=== PATIENT | female | born 1945 | race Caucasian/White ===

== ENCOUNTER 2019-08-26 09:50 | Day surgery (SDC) | payer MEDICARE, OTHER ==
[2019-08-26] MEDS ORDERED: Depo-Medrol 40 MG/ML IM ONE (09:51)
[2019-08-26] MEDS ORDERED: Sodium Chloride 0.9(Preservative Free) 10 ML IJ ONE (09:51)
[2019-08-26] MEDS ORDERED: DIPRIVAN 200 MG/20 ML IV ONE (11:03)
[2019-08-26] MEDS ORDERED: Ketamine HCl 50 MG/ML ONE (11:03)
--- NOTE | 2019-08-26 13:10 | XRAY ---
Indication: Right L4-S1 ISAAC. Intraoperative fluoroscopy was provided for 30 seconds. For digital spot images submitted for interpretation demonstrates posterior needle tips projecting over the expected right L4 and L5 nerve roots. Small amount of contrast injected for needle tip placement. Correlate with intraoperative findings/report. Incidental posterior L4-L5 spinous process fusion hardware.
--- NOTE | 2019-08-26 13:23 | XRAY ---
30 seconds fluoroscopy time in surgery for right L4-S1 transforaminal ISAAC.
[2019-08-26] MEDS ORDERED: Lactated Ringers 1,000 ML IV ONE (15:40)
== END 2019-08-26 11:30 | disposition home or self-care (01) ==
LOC: SDC-PAIN 09:50
PROVIDERS: ATTEND Psychiatry & Neurology Pain Medicine
DX: M54.16 Radiculopathy, lumbar region (principal); M96.1 Postlaminectomy syndrome, not elsewhere classified; E11.9 Type 2 diabetes mellitus without complications; I10 Essential (primary) hypertension; E03.9 Hypothyroidism, unspecified; E78.5 Hyperlipidemia, unspecified; G62.9 Polyneuropathy, unspecified; Z79.899 Other long term (current) drug therapy
CPT/HCPCS: 64483; 64484; 72100; 77003; 82962; 99100; J1030; J2704; Q9966

== ENCOUNTER 2022-09-17 14:28 | Emergency (ER) | payer MEDICARE, OTHER ==
--- NOTE | 2022-09-17 14:36 | ERPHSYRPT ---
- History of Present Illness Time Seen by Provider: 09/17/22 14:36 Source: patient Exam Limitations: no limitations Physician History: This is a 77-year-old white female patient who was seen at her primary care physician's office, Dr. Puneet Rodriguez and found to have a systolic blood pressure of over 220. 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 Hong, and she recalls that her systolic blood pressure was 135. Because of her high blood pressure, the patient was sent to the emergency room for evaluation. Patient took her benazepril this morning which is the only medication she has for her high blood pressure. There is been no recent changes in her medications. Patient has a history of hyperlipidemia, hypertension and hypothyroidism. Patient denies chest pain. Patient denies shortness of breath. She has had a cough and she has not had a chest x-ray recently. Patient denies dizziness, headache or visual changes. Patient has experienced stressors within the last 1 to 2 weeks and as recent as yesterday and today. However, she states that she does not feel as though she is under increased or significant stress Timing/Duration: today Severity: moderate Associated Symptoms: denies symptoms, No shortness of breath, No chest pain, No weakness Allergies/Adverse Reactions: No Known Drug Allergies Allergy (Unverified 09/17/22 14:51) Home Medications: Levothyroxine Sodium 75 Mcg [Synthroid 75 Mcg] 75 mcg PO UD 02/02/12 [History] Ascorbic Acid 1,000 gm PO DAILY 09/17/22 [History] Benazepril HCl 20 mg PO BID 09/17/22 [History] Diclofenac Sodium 50 mg [Voltaren 50 mg] 50 mg PO DAILY 09/17/22 [History] Fexofenadine HCl 60 mg PO DAILY 09/17/22 [History] Hydrocodone/Acetaminophen [Hydrocodone-Acetamin 5-325 mg] 1 tab PO Q4H PRN MDD 6 09/17/22 [History] Levothyroxine Sodium 88 Mcg [Synthroid 88 Mcg] 88 mcg PO DAILY 09/17/22 [History] Magnesium Oxide [Magnesium] 400 mg PO DAILY 09/17/22 [History] Metformin HCl 500 mg [Glucophage 500 MG] 500 mg PO BID 09/17/22 [History] Metoprolol Succinate 50 mg [Toprol Xl 50 MG] 25 mg PO DAILY 09/17/22 [His tory] Oxcarbazepine 300 mg [Trileptal 300 MG Tablet] 300 mg PO BID 09/17/22 [History] Pravastatin Sodium 40 mg PO DAILY 09/17/22 [History] Pregabalin 200 mg PO TID 09/17/22 [History] Hx Tetanus, Diphtheria Vaccination/Date Given: No Hx Influenza Vaccination/Date Given: No Hx Pneumococcal Vaccination/Date Given: No Travel Risk - International Travel Have you traveled outside of the country in past 3 weeks: No - Coronavirus Screening Are you exhibiting any of the following symptoms?: Yes Symptoms: Cough: New Onset Close contact with a COVID-19 positive Pt in past 14-21 Days: No - Review of Systems Eyes: No Symptoms Ears, Nose, & Throat: No Symptoms Respiratory: Cough Cardiac: No Symptoms Abdominal/Gastrointestinal: No Symptoms Genitourinary Symptoms: No Symptoms Musculoskeletal: No Symptoms Skin: No Symptoms Neurological: No Symptoms Psychological: No Symptoms Endocrine: No Symptoms Hematologic/Lymphatic: No Symptoms Immunological/Allergic: No Symptoms All Other Systems: Reviewed and Negative - Past Medical History Pertinent Past Medical History: No Neurological History: No Pertinent History Cardiac History: High Cholesterol, Hypertension Respiratory History: No Pertinent History Endocrine Medical History: Diabetes Type II, Hypothyroidism Musculoskeletal History: Degenerative Disk Disease, Osteoarthritis, Other Other Medical History: SX HX: HYSTERECTOMY, LUMBAR FUSION, T&A, APPENDECTOMY. OTHER PMHx: SPINAL STENOSIS, POLIO - Past Surgical History Past Surgical History: Yes Gastrointestinal: Appendectomy Female Surgical History: Hysterectomy, Lumpectomy - Social History Smoking Status: Former smoker Exposure to second hand smoke: Yes Drug Use: none Patient Lives Alone: No - Nursing Vital Signs Nursing Vital Signs: Initial Vital Signs Temperature 97.4 F 09/17/22 14:36 Pulse Rate 65 09/17/22 14:36 Blood Pressure 227/87 09/17/22 14:36 O2 Sat by Pulse Oximetry 96 09/17/22 14:36 Pain Scale Pain Intensity 7 - Physical Exam General Appearance: no apparent distress, alert, anxiety, obese Eye Exam: PERRL/EOMI, eyes nml inspection Ears, Nose, Throat Exam: normal ENT inspection, moist mucous membranes Neck Exam: normal inspection, non-tender, supple, full range of motion Respiratory Exam: normal breath sounds, lungs clear, airway intact, No chest tenderness, No respiratory distress Cardiovascular Exam: regular rate/rhythm, normal heart sounds, normal peripheral pulses Gastrointestinal/Abdomen Exam: soft, normal bowel sounds, No tenderness Pelvic Exam: not done Rectal Exam: not done Back Exam: normal inspection, normal range of motion, No CVA tenderness, No vertebral tenderness Extremity Exam: normal inspection, normal range of motion, pelvis stable Neurologic Exam: alert, oriented x 3, cooperative, cream ripener II-XII nml as tested, normal mood/affect, nml cerebellar function, nml station & gait, sensation nml Skin Exam: normal color, warm, dry Lymphatic Exam: No adenopathy SpO2 Interpretation: normal O2 Delivery: Room Air - Course Nursing assessment & vital signs reviewed: Yes EKG Interpreted by Me: RATE (60), Sinus Rhythm, NORMAL AXIS, NORMAL INTERVALS, NORMAL QRS, NORMAL ST-T, Other (No acute ischemic changes. 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 STAT Care 09/17/22 15:02 Active EKG-ER Only STAT Care 09/17/22 15:01 Active IV Insertion STAT Care 09/17/22 15:01 Active Pulse Oximetry (ED) STAT Care 09/17/22 15:01 Active CHEST 1 VIEW (PORTABLE) Stat Exams 09/17/22 15:15 Completed CHEST WITH CONTRAST [CT] Stat Exams 09/17/22 15:47 Completed CBC W DIFF Stat Lab 09/17/22 15:08 Completed CMP Stat Lab 09/17/22 15:08 Completed CULTURE,URINE Stat Lab 09/17/22 15:03 Received D-DIMER QUANTITATIVE Stat Lab 09/17/22 15:08 Completed MAGNESIUM Stat Lab 09/17/22 15:08 Completed T4 (Thyroxine) Stat Lab 09/17/22 15:08 Completed TROPONIN Q4H Lab 09/17/22 15:08 Completed TROPONIN Q4H Lab 09/17/22 19:15 Ordered TROPONIN Q4H Lab 09/17/22 23:15 Ordered TSH [TSH, 3RD Generation] Stat Lab 09/17/22 15:08 Completed UA W/RFX UR CULTURE Stat Lab 09/17/22 15:03 Completed Medication Summary Generic Name Dose Route Start Last Admin Trade Name Janett PRN Reason Stop Dose Admin Morphine Sulfate 4 mg 09/17/22 17:25 Morphine Sulfate 4 Mg/Ml Injection IV 09/17/22 17:26 STAT ONE Ondansetron HCl 4 mg 09/17/22 17:25 Ondansetron Hcl 4 Mg/2 Ml Vial IV 09/17/22 17:26 STAT ONE Discontinued Medications Generic Name Dose Route Start Last Admin Trade Name Janett PRN Reason Stop Dose Admin Enalaprilat 1.25 mg 09/17/22 15:01 09/17/22 15:07 Enalaprilat 2.5 Mg Injection IV 09/17/22 15:02 1.25 mg STAT ONE Administration Enalaprilat Confirm 09/17/22 15:04 Enalaprilat 2.5 Mg Injection Administered 09/17/22 15:05 Dose 2.5 mg IV .STK-MED ONE Hydralazine HCl 5 mg 09/17/22 16:12 09/17/22 16:18 Hydralazine Hcl 20 Mg/Ml Vial IV 09/17/22 16:13 5 mg STAT ONE Administration Hydralazine HCl Confirm 09/17/22 16:16 Hydralazine Hcl 20 Mg/Ml Vial Administered 09/17/22 16:17 Dose 20 mg .ROUTE .STK-MED ONE Ceftriaxone Sodium/Dextrose 1 g in 50 mls @ 100 mls/hr 09/17/22 15:46 09/17/22 16:40 Rocephin 1 Gm-D5w 50 Ml Bag IV 09/17/22 16:15 Infused STAT STA Infusion Ceftriaxone Sodium/Dextrose Confirm 09/17/22 15:56 Rocephin 1 Gm-D5w 50 Ml Bag Administered 09/17/22 15:57 Dose 1 g in 50 mls @ ud IV .STK-MED ONE Lab/Rad Data: Laboratory Result Diagrams 09/17/22 15:08 09/17/22 15:08 Laboratory Results 09/17/22 09/17/22 09/17/22 Range/Units 15:14 15:08 15:08 WBC (4.0-10.5) x10^3/uL RBC (4.1-5.4) x10^6/uL Hgb (12.0-16.0) g/dL Hct (35-47) % MCV (78-100) fL MCH (26-32) pg MCHC (32-36) g/dL RDW (11.5-14.0) % Plt Count (150-450) x10^3/uL MPV (7.5-11.0) fL Gran % (36.0-66.0) % Immature Gran % (Auto) (0.00-0.4) % Nucleat RBC Rel Count (0.00-0.1) % Eos # (Auto) (0-0.5) x10^3/uL Immature Gran # (Auto) (0.00-0.03) x10^3u/L Absolute Lymphs (auto) (1.0-4.6) x10^3/uL Absolute Monos (auto) (0.0-1.3) x10^3/uL Absolute Nucleated RBC (0.00-0.01) x10^3u/L Lymphocytes % (24.0-44.0) % Monocytes % (0.0-12.0) % Eosinophils % (0.00-5.0) % Basophils % (0.0-0.4) % Absolute Granulocytes (1.4-6.9) x10^3/uL Basophils # (0-0.4) x10^3/uL D-Dimer 0.64 H* (0.0-0.50) mg/L Sodium (137-145) mmol/L Potassium (3.5-5.1) mmol/L Chloride (98-107) mmol/L Carbon Dioxide (22-30) mmol/L Anion Gap (5-15) MEQ/L BUN (7-17) mg/dL Creatinine (0.52-1.04) mg/dL Estimated GFR ML/MIN Glucose (74-106) mg/dL Calcium (8.4-10.2) mg/dL Magnesium (1.6-2.3) mg/dL Total Bilirubin (0.2-1.3) mg/dL AST (14-36) U/L ALT (0-35) U/L Alkaline Phosphatase (38-126) U/L Troponin I (0.000-0.034) ng/mL Serum Total Protein (6.3-8.2) g/dL Albumin (3.5-5.0) g/dL Thyroxine (T4) 7.73 (5.53-10.96) ug/dL TSH 3rd Generation 0.734 (0.47-4.68) mIU/L Urine Color (Yellow) Urine Appearance (Clear) Urine pH (4.6-8.0) Ur Specific [place] (1.005-1.030) Urine Protein (Negative) Urine Glucose (UA) (Negative) mg/dL Urine Ketones (Negative) Urine Blood (Negative) Urine Nitrite (Negative) Urine Bilirubin (Negative) Urine Urobilinogen (0.2) mg/dL Ur Leukocyte Esterase (Negative) U Hyaline Cast (Auto) (0-2) /LPF Urine Microscopic RBC (0-5) /HPF Urine Microscopic WBC (0-5) /HPF Ur Epithelial Cells (None Seen) /HPF Urine Bacteria (None Seen) /HPF Urine Culture Reflexed (NO) Influenza Type A Ag NEGATIVE (NEGATIVE) Influenza Type B Ag NEGATIVE (NEGATIVE) RSV (PCR) NEGATIVE (Negative) SARS-CoV-2 (PCR) NEGATIVE (NEGATIVE) 09/17/22 09/17/22 09/17/22 Range/Units 15:08 15:08 15:08 WBC 9.5 (4.0-10.5) x10^3/uL RBC 4.28 (4.1-5.4) x10^6/uL Hgb 12.9 (12.0-16.0) g/dL Hct 38.3 (35-47) % MCV 89.5 (78-100) fL MCH 30.1 (26-32) pg MCHC 33.7 (32-36) g/dL RDW 12.9 (11.5-14.0) % Plt Count 293 (150-450) x10^3/uL MPV 10.2 (7.5-11.0) fL Gran % 49.5 (36.0-66.0) % Immature Gran % (Auto) 0.3 (0.00-0.4) % Nucleat RBC Rel Count 0.0 (0.00-0.1) % Eos # (Auto) 1.24 H (0-0.5) x10^3/uL Immature Gran # (Auto) 0.03 (0.00-0.03) x10^3u/L Absolute Lymphs (auto) 2.66 (1.0-4.6) x10^3/uL Absolute Monos (auto) 0.76 (0.0-1.3) x10^3/uL Absolute Nucleated RBC 0.00 (0.00-0.01) x10^3u/L Lymphocytes % 28.0 (24.0-44.0) % Monocytes % 8.0 (0.0-12.0) % Eosinophils % 13.0 H (0.00-5.0) % Basophils % 1.2 (0.0-0.4) % Absolute Granulocytes 4.71 (1.4-6.9) x10^3/uL Basophils # 0.11 (0-0.4) x10^3/uL D-Dimer (0.0-0.50) mg/L Sodium 129 L (137-145) mmol/L Potassium 4.4 (3.5-5.1) mmol/L Chloride 93 L (98-107) mmol/L Carbon Dioxide 25 (22-30) mmol/L Anion Gap 15.1 H (5-15) MEQ/L BUN 19 H (7-17) mg/dL Creatinine 0.54 (0.52-1.04) mg/dL Estimated GFR > 60.0 ML/MIN Glucose 114 H (74-106) mg/dL Calcium 9.1 (8.4-10.2) mg/dL Magnesium 2.0 (1.6-2.3) mg/dL Total Bilirubin 0.50 (0.2-1.3) mg/dL AST 33 (14-36) U/L ALT 23 (0-35) U/L Alkaline Phosphatase 89 (38-126) U/L Troponin I < 0.012 (0.000-0.034) ng/mL Serum Total Protein 7.9 (6.3-8.2) g/dL Albumin 4.6 (3.5-5.0) g/dL Thyroxine (T4) (5.53-10.96) ug/dL TSH 3rd Generation (0.47-4.68) mIU/L Urine Color (Yellow) Urine Appearance (Clear) Urine pH (4.6-8.0) Ur Specific [place] (1.005-1.030) Urine Protein (Negative) Urine Glucose (UA) (Negative) mg/dL Urine Ketones (Negative) Urine Blood (Negative) Urine Nitrite (Negative) Urine Bilirubin (Negative) Urine Urobilinogen (0.2) mg/dL Ur Leukocyte Esterase (Negative) U Hyaline Cast (Auto) (0-2) /LPF Urine Microscopic RBC (0-5) /HPF Urine Microscopic WBC (0-5) /HPF Ur Epithelial Cells (None Seen) /HPF Urine Bacteria (None Seen) /HPF Urine Culture Reflexed (NO) Influenza Type A Ag (NEGATIVE) Influenza Type B Ag (NEGATIVE) RSV (PCR) (Negative) SARS-CoV-2 (PCR) (NEGATIVE) 09/17/22 Range/Units 15:03 WBC (4.0-10.5) x10^3/uL RBC (4.1-5.4) x10^6/uL Hgb (12.0-16.0) g/dL Hct (35-47) % MCV (78-100) fL MCH (26-32) pg MCHC (32-36) g/dL RDW (11.5-14.0) % Plt Count (150-450) x10^3/uL MPV (7.5-11.0) fL Gran % (36.0-66.0) % Immature Gran % (Auto) (0.00-0.4) % Nucleat RBC Rel Count (0.00-0.1) % Eos # (Auto) (0-0.5) x10^3/uL Immature Gran # (Auto) (0.00-0.03) x10^3u/L Absolute Lymphs (auto) (1.0-4.6) x10^3/uL Absolute Monos (auto) (0.0-1.3) x10^3/uL Absolute Nucleated RBC (0.00-0.01) x10^3u/L Lymphocytes % (24.0-44.0) % Monocytes % (0.0-12.0) % Eosinophils % (0.00-5.0) % Basophils % (0.0-0.4) % Absolute Granulocytes (1.4-6.9) x10^3/uL Basophils # (0-0.4) x10^3/uL D-Dimer (0.0-0.50) mg/L Sodium (137-145) mmol/L Potassium (3.5-5.1) mmol/L Chloride (98-107) mmol/L Carbon Dioxide (22-30) mmol/L Anion Gap (5-15) MEQ/L BUN (7-17) mg/dL Creatinine (0.52-1.04) mg/dL Estimated GFR ML/MIN Glucose (74-106) mg/dL Calcium (8.4-10.2) mg/dL Magnesium (1.6-2.3) mg/dL Total Bilirubin (0.2-1.3) mg/dL AST (14-36) U/L ALT (0-35) U/L Alkaline Phosphatase (38-126) U/L Troponin I (0.000-0.034) ng/mL Serum Total Protein (6.3-8.2) g/dL Albumin (3.5-5.0) g/dL Thyroxine (T4) (5.53-10.96) ug/dL TSH 3rd Generation (0.47-4.68) mIU/L Urine Color Yellow (Yellow) Urine Appearance Cloudy A (Clear) Urine pH 7.0 (4.6-8.0) Ur Specific [place] 1.015 (1.005-1.030) Urine Protein Negative (Negative) Urine Glucose (UA) Negative (Negative) mg/dL Urine Ketones Negative (Negative) Urine Blood Negative (Negative) Urine Nitrite Positive A (Negative) Urine Bilirubin Negative (Negative) Urine Urobilinogen 0.2 (0.2) mg/dL Ur Leukocyte Esterase Moderate A (Negative) U Hyaline Cast (Auto) NONE SEEN (0-2) /LPF Urine Microscopic RBC 0-2 (0-5) /HPF Urine Microscopic WBC 51-100 A (0-5) /HPF Ur Epithelial Cells None Seen (None Seen) /HPF Urine Bacteria Many A (None Seen) /HPF Urine Culture Reflexed YES (NO) Influenza Type A Ag (NEGATIVE) Influenza Type B Ag (NEGATIVE) RSV (PCR) (Negative) SARS-CoV-2 (PCR) (NEGATIVE) - Progress Progress: improved Progress Note: 09/17/22 15:32 Chest x-ray was interpreted by me. I see no acute cardiopulmonary process. 09/17/22 17:26 CTA of chest shows no pulmonary embolus. There are no acute cardiopulmonary processes. This patient has medical issues of moderate complexity. This patient on the patient's complaint, review of vital signs, history of present illness and physical exam findings. Based on the above, we placed an intravenous line, provided the patient with intravenous antihypertensive medication and provided her with morphine and Zofran intravenously. We performed a chest x-ray and CTA of chest. Patient's symptoms are likely secondary to a significant urinary tract infection. She also may need some adjustment in her outpatient antihypertensive medication. I reviewed the results of the work-up and now have the diagnosis. Her blood pressure is under better control. Based on the above we formulated a discharge plan. Patient is to continue medication as prescribed. We will send her outpatient antibiotics to her local pharmacy. Patient was told to keep a daily 3 times a day log of her blood pressure and call her primary care physician tomorrow to make arranges for follow-up appointment. Counseled pt/family regarding: lab results, diagnosis, need for follow-up, rad results Medical Desision Making - External Record(s) Reviewed Records reviewed as a part of evaluation & management: Clinic - Discussion of managment Reviewed:: Test results, Need for additional workup Agreed on:: Treatment plan, need for follow-up - Diagnostic Testing Radiological Interpretation: Interpreted by me (Chest x-ray), Teleradiologist Report (CTA of chest report reviewed by me) - Risk of complications Low Risk: Low risk of morbidity from additional dx testing or treatment - Departure Departure Disposition: Home Clinical Impression: Hypertension, UTI (urinary tract infection) Condition: Stable Critical Care Time: Yes Critical Care Time(excluding separately billable procedures): Critical 30-74 mins (40 minutes) Referrals: MIGUEL BRAN [Primary Care Provider] - Follow up/PCP as directed
[2022-09-17] MEDS ORDERED: ENALAPRILAT 2.5 MG INJECTION IV ONE ×2 (15:01→15:04)
[2022-09-17 15:14] LABS: Absolute Neutrophil Ct (ANC) 4.71 x10^3/uL (1.4-6.9); BASOPHIL % 1.2 % (0.0-0.4); Basophil (Absolute #) 0.11 x10^3/uL (0-0.4); Eosinophil (Absolute #) 1.24 x10^3/uL (0-0.5); Hematocrit 38.3 % (35-47); Hemoglobin 12.9 g/dL (12.0-16.0); IMMATURE GRAN # 0.03 x10^3u/L (0.00-0.03); IMMATURE GRAN % 0.3 % (0.00-0.4); Lymphocyte (Absolute #) 2.66 x10^3/uL (1.0-4.6); Mean Cell Volume 89.5 fL (78-100); Mean Corpuscular Hemoglobin 30.1 pg (26-32); Mean Corpuscular Hgb Concent. 33.7 g/dL (32-36); Mean Platelet Volume 10.2 fL (7.5-11.0); Monocyte (Absolute #) 0.76 x10^3/uL (0.0-1.3); Neutrophil % 49.5 % (36.0-66.0); Platelet Count 293 x10^3/uL (150-450); Red Blood Count 4.28 x10^6/uL (4.1-5.4); Red Cell Distribution Width 12.9 % (11.5-14.0); White Blood Count 9.5 x10^3/uL (4.0-10.5)
[2022-09-17 15:26] LABS: Appearance Cloudy (Clear); Bacteria Many /HPF (None Seen); Bilirubin Negative (Negative); Blood Negative (Negative); Epithelial Cells None Seen /HPF (None Seen); Glucose, Urine Negative (Negative); Hyaline Casts NONE SEEN /LPF (0-2); Ketones Negative (Negative); Leukocyte Esterase Moderate (Negative); Nitrite Positive (Negative); Protein,Urine Dip Negative (Negative); RBC 0-2 /HPF (0-5); Specific Gravity 1.015 (1.005-1.030); Urobilinogen 0.2 mg/dL (0.2); WBC 51-100 /HPF (0-5)
[2022-09-17 15:29] LABS: ADD URINE CULTURE? YES (NO)
[2022-09-17 15:29] LABS: ALBUMIN 4.6 g/dL (3.5-5.0); ALKALINE PHOSPHATASE 89 U/L (38-126); ANION GAP 15.1 MEQ/L (5-15); BLOOD UREA NITROGEN 19 mg/dL (7-17); CHLORIDE 93 mmol/L (98-107); Calcium 9.1 mg/dL (8.4-10.2); Carbon Dioxide 25 mmol/L (22-30); Creatinine 1 0.54 mg/dL (0.52-1.04); EST GLOMERULAR FILTRATION RATE > 60.0 ML/MIN; Glucose 114 mg/dL (74-106); Potassium 4.4 mmol/L (3.5-5.1); SGOT/AST 33 U/L (14-36); SGPT/ALT 23 U/L (0-35); SODIUM 129 mmol/L (137-145); Total Protein 7.9 g/dL (6.3-8.2)
[2022-09-17] MEDS ORDERED: ROCEPHIN 1 Gm-D5w 50 ml Bag** 1 G/50 ML IVPB IV STA (15:46)
[2022-09-17 15:55] LABS: INFLUENZA A NEGATIVE (NEGATIVE); INFLUENZA B NEGATIVE (NEGATIVE); RESPIRATORY SYNCTIAL VIRUS NEGATIVE (Negative); SARS-CoV-2 Xpert Express NEGATIVE (NEGATIVE)
[2022-09-17] MEDS ORDERED: ROCEPHIN 1 Gm-D5w 50 ml Bag** 1 G/50 ML IVPB IV ONE (15:56)
[2022-09-17 16:12] LABS: T4 (Thyroxine) 7.73 ug/dL (5.53-10.96); TSH, 3RD Generation 0.734 mIU/L (0.47-4.68)
[2022-09-17] MEDS ORDERED: APRESOLINE 20 MG/ML INJ IV ONE (16:12)
--- NOTE | 2022-09-17 16:14 | XRAY ---
Indication: High blood pressure. Comparison: July 14, 2021 Portable chest again demonstrates normal heart and lungs with incidental right midlung calcified granuloma. Bony thorax intact again with osteopenia and mild degenerative changes. No new/acute findings.
[2022-09-17] MEDS ORDERED: APRESOLINE 20 MG/ML INJ ONE (16:16)
--- NOTE | 2022-09-17 17:22 | XRAY ---
Indication: Short of breath. Hypertension. Elevated d-dimer. Multiple contiguous axial images obtained through the chest using 100 cc Isovue 370 contrast and PE protocol. Comparison: CT chest without contrast November 18, 2015. Good opacification of the pulmonary arteries to include the lobar and segmental branches. No pulmonary embolus. Heart not enlarged. Aorta is normal in course and caliber with again minimal arteriosclerotic calcifications. Stable tiny subcarinal and right hilar calcified nodes. No pathologic mediastinal/hilar lymphadenopathy. Lungs demonstrates stable right middle lobe calcified granulomas. No suspicious pulmonary mass, infiltrate, effusion, or pneumothorax. Bony thorax intact again with mild/moderate degenerative changes throughout the spine. Limited upper abdomen including adrenal glands are unremarkable. Impression: 1. Negative pulmonary embolus. No new/acute cardiopulmonary abnormalities. 2. Again chronic bony findings and old granulomatous disease.
[2022-09-17] MEDS ORDERED: MORPHINE SULFATE 4 MG INJ IV ONE (17:25)
[2022-09-17] MEDS ORDERED: Zofran 4 MG/2 ML VIAL IV ONE (17:25)
[2022-09-17] MEDS ORDERED: Zofran 4 MG/2 ML VIAL ONE (17:27)
[2022-09-17] MEDS ORDERED: MORPHINE SULFATE 4 MG INJ ONE (17:27)
[2022-09-17 17:39] VITALS: BP 168/82; PULSE 64; O2SAT 93
== END 2022-09-17 18:08 | disposition home or self-care (01) ==
LOC: ED 14:28
DX: N39.0 Urinary tract infection, site not specified (principal); I10 Essential (primary) hypertension; E78.5 Hyperlipidemia, unspecified; E11.9 Type 2 diabetes mellitus without complications; Z79.891 Long term (current) use of opiate analgesic; Z79.84 Long term (current) use of oral hypoglycemic drugs; Z79.899 Other long term (current) drug therapy; Z20.828 Contact with and (suspected) exposure to other viral communicable diseases
CPT/HCPCS: 0241U; 36000; 36415; 71045; 71260; 80053; 81001; 83735; 84436; 84443; 84484; 85025; 85379; 87077; 87086; 87186; 93005; 93041; 94760; 96365; 96374; 96375; 99284; 99291; J0360; J0696; J2270; J2405

== ENCOUNTER 2024-10-18 11:44 | Emergency (ER) | payer MEDICARE, OTHER ==
[2024-10-18 12:19] VITALS: TEMP 96.6
--- NOTE | 2024-10-18 13:21 | ERPHSYRPT ---
- History of Present Illness Time Seen by Provider: 10/18/24 13:10 Source: patient Exam Limitations: no limitations Patient Subjective Stated Complaint: C/O hyperglycemia for a week. States she has placed a few calls to her primary care in regards to this and has not recei blayne a call back. Blood sugar as great as 500 at times. States was over 300 while fasting this am. Triage Nursing Assessment: Patient ambulated back to ER. She is alert and jihan ented. No SOB. Does have dry mouth. MARIA WNL. No N/V. Accucheck obtained by ER glucometer; see POCT documentation. Physician History: 79yo f pmhx DM2 presents via private vehicle for elevated BG at home. Pt reports her BG has been running as high as 500 at home for the past week. Pt reports her fasting BG was 300 this AM. Pt takes metformin 500mg BID. Pt reports recent UTI that she received IV abx for, has been feeling fatigued and weak since her infection, reports she has not been exercising or eating well since the infection started. Pt endorses some dry mouth and polyuria for the past several days. Pt denies any cp, sob, n/v/d. Daughter in room denies any confusion or change in mentation. Timing/Duration: week(s) Severity: mild Associated Symptoms: No nausea, No vomiting, No shortness of breath, No chest pain, No fever Allergies/Adverse Reactions: No Known Drug Allergies Allergy (Verified 10/18/24 12:17) Home Medications: Levothyroxine Sodium 75 Mcg [Synthroid 75 Mcg] 75 mcg PO UD 02/02/12 [History] Ascorbic Acid 1,000 gm PO DAILY 09/17/22 [History] Benazepril HCl 20 mg PO BID 09/17/22 [History] Diclofenac Sodium 50 mg [Voltaren 50 mg] 50 mg PO DAILY 09/17/22 [History] Fexofenadine HCl 60 mg PO DAILY 09/17/22 [History] Hydrocodone/Acetaminophen [Hydrocodone-Acetamin 5-325 mg] 1 tab PO Q4H PRN MDD 6 09/17/22 [History] Levothyroxine Sodium 88 Mcg [Synthroid 88 Mcg] 88 mcg PO DAILY 09/17/22 [History] Magnesium Oxide [Magnesium] 400 mg PO DAILY 09/17/22 [History] Metformin HCl 500 mg [Glucophage 500 MG] 500 mg PO BID 09/17/22 [History] Metoprolol Succinate 50 mg [Toprol Xl 50 MG] 25 mg PO DAILY 09/17/22 [History] Oxcarbazepine 300 mg [Trileptal 300 MG Tablet] 300 mg PO BID 09/17/22 [History] Pravastatin Sodium 40 mg PO DAILY 09/17/22 [History] Pregabalin 200 mg PO TID 09/17/22 [History] Hx Tetanus, Diphtheria Vaccination/Date Given: Yes Hx Influenza Vaccination/Date Given: Yes Hx Pneumococcal Vaccination/Date Given: Yes Immunizations Up to Date: Yes Travel Risk - International Travel Have you traveled outside of the country in past 3 weeks: No - Emerging Infectious Disease Are you exhibiting symptoms associated with any current EIDs: Yes Symptoms: Headaches/Body Aches/ - Review of Systems Constitutional: No Symptoms Respiratory: No Symptoms Cardiac: No Symptoms Abdominal/Gastrointestinal: No Symptoms Genitourinary Symptoms: Frequency Endocrine: Polyuria, Polydipsia - Past Medical History Pertinent Past Medical History: Yes Neurological History: No Pertinent History Cardiac History: High Cholesterol, Hypertension Respiratory History: No Pertinent History Endocrine Medical History: Diabetes Type II, Hypothyroidism Musculoskeletal History: Degenerative Disk Disease, Osteoarthritis, Other GI Medical History: No Pertinent History History: Other Other Medical History: SPINAL STENOSIS, POLIO. multiple UTIs cystoscopy - Past Surgical History Past Surgical History: Yes Gastrointestinal: Appendectomy Female Surgical History: Hysterectomy, Lumpectomy Other Surgical History: LUMBAR FUSION - Social History Smoking Status: Former smoker Drug Use: none - Social Determinants of Health Will the patient participate in the screening: Yes Do you worry about a steady place to live?: No Do you have any problems with any of the following?: No known problems In the past 12 months,have you had to go without utilities?: No Transportation Issues: No Has anyone in your support network made you feel unsafe?: No Have you or anyone in your house had to go w/o enough food: No - Nursing Vital Signs Nursing Vital Signs: Initial Vital Signs O2 Sat by Pulse Oximetry 96 10/18/24 12:13 Pain Scale Pain Intensity 0 - Physical Exam General Appearance: no apparent distress, alert Respiratory Exam: normal breath sounds, lungs clear, airway intact, No chest tenderness, No respiratory distress Cardiovascular Exam: regular rate/rhythm, normal heart sounds Gastrointestinal/Abdomen Exam: soft, No tenderness Neurologic Exam: alert, oriented x 3, cooperative SpO2 Interpretation: normal SpO2: 96 O2 Delivery: Room Air Ordered Tests: Active Orders 24 hr Category Date Time Status CBC W DIFF Stat Lab 10/18/24 12:30 Completed CMP Stat Lab 10/18/24 12:30 Completed CULTURE,URINE Stat Lab 10/18/24 12:10 Received POCT GLUCOSE Stat Lab 10/18/24 12:13 Completed POCT GLUCOSE Stat Lab 10/18/24 14:28 Completed UA W/RFX UR CULTURE Stat Lab 10/18/24 12:10 Completed VENOUS BLOOD GAS Urgent Lab 10/18/24 13:18 Completed Lab/Rad Data: Laboratory Result Diagrams 10/18/24 12:30 10/18/24 12:30 Laboratory Results 10/18/24 10/18/24 10/18/24 Range/Units 14:28 13:18 12:30 WBC (3.98-10.04) x10^3/uL RBC (3.93-5.22) x10^6/uL Hgb (11.2-15.7) g/dL Hct (34.1-44.9) % MCV (79.4-94.8) fL MCH (25.6-32.2) pg MCHC (32.2-35.5) g/dL RDW (11.7-14.4) % Plt Count (182-369) x10^3/uL MPV (9.4-12.3) fL Gran % (34.0-71.1) % Immature Gran % (Auto) (0.001-0.429) % Nucleat RBC Rel Count (0.00-0.2) % Eos # (Auto) (0.04-0.36) x10^3/uL Immature Gran # (Auto) (0.001-0.031) x10^3u/L Absolute Lymphs (auto) (1.18-3.74) x10^3/uL Absolute Monos (auto) (0.24-0.86) x10^3/uL Absolute Nucleated RBC (0.00-0.012) x10^3u/L Lymphocytes % (19.3-51.7) % Monocytes % (4.7-12.5) % Eosinophils % (0.7-5.8) % Basophils % (0.1-1.2) % Absolute Granulocytes (1.56-6.13) x10^3/uL Basophils # (0.01-0.08) x10^3/uL pO2/FiO2 Ratio 21.0 % VBG pH 7.46 H (7.32-7.42) VBG pCO2 at Pat Temp 33 L (42-55) mm/Hg VBG pO2 at Pat Temp 75 H (25-40) mm/Hg VBG HCO3 23.5 (22-28) meq/L VBG O2 Sat (Alexx) 96.6 (95-100) VBG Base Excess 0.2 (-2.0-2.0) VBG Hemoglobin 13.1 VBG Carboxyhemoglobin 5.2 (0.0-6.9) % T HGB POC Potassium 5.4 H (3.5-5.1) Sodium 134 L (135-145) mmol/L Potassium 4.5 (3.5-5.1) mmol/L Chloride 100 (98-107) mmol/L Carbon Dioxide 21 L (22-30) mmol/L Anion Gap 17.4 H (5-15) MEQ/L BUN 27 H (7-17) mg/dL Creatinine 0.66 (0.52-1.04) mg/dL Estimated GFR 89.2 ML/MIN Glucose 374 H (74-106) mg/dL POC Glucometer 319 H (74 to 106) mg/dL Calcium 9.3 (8.4-10.2) mg/dL Total Bilirubin 0.60 (0.2-1.3) mg/dL AST 33 (14-36) U/L ALT 26 (0-35) U/L Alkaline Phosphatase 80 (38-126) U/L Serum Total Protein 7.2 (6.3-8.2) g/dL Albumin 4.6 (3.5-5.0) g/dL Urine Color (Yellow) Urine Appearance (Clear) Urine pH (4.6-8.0) Ur Specific [place] (1.005-1.030) Urine Protein (Negative) Urine Glucose (UA) (Negative) mg/dL Urine Ketones (Negative) Urine Blood (Negative) Urine Nitrite (Negative) Urine Bilirubin (Negative) Urine Urobilinogen (0.2) mg/dL Ur Leukocyte Esterase (Negative) U Hyaline Cast (Auto) (0-2) /LPF Urine Microscopic RBC (0-5) /HPF Urine Microscopic WBC (0-5) /HPF Ur Epithelial Cells (None Seen) /HPF Urine Bacteria (None Seen) /HPF Urine Yeast (Budding) (None Seen) /HPF Urine Culture Reflexed (NO) 10/18/24 10/18/24 10/18/24 Range/Units 12:30 12:13 12:10 WBC 10.6 H (3.98-10.04) x10^3/uL RBC 4.41 (3.93-5.22) x10^6/uL Hgb 13.0 (11.2-15.7) g/dL Hct 39.8 (34.1-44.9) % MCV 90.2 (79.4-94.8) fL MCH 29.5 (25.6-32.2) pg MCHC 32.7 (32.2-35.5) g/dL RDW 12.8 (11.7-14.4) % Plt Count 207 (182-369) x10^3/uL MPV 11.9 (9.4-12.3) fL Gran % 58.4 (34.0-71.1) % Immature Gran % (Auto) 0.2 (0.001-0.429) % Nucleat RBC Rel Count 0.0 (0.00-0.2) % Eos # (Auto) 0.59 H (0.04-0.36) x10^3/uL Immature Gran # (Auto) 0.02 (0.001-0.031) x10^3u/L Absolute Lymphs (auto) 3.01 (1.18-3.74) x10^3/uL Absolute Monos (auto) 0.71 (0.24-0.86) x10^3/uL Absolute Nucleated RBC 0.00 (0.00-0.012) x10^3u/L Lymphocytes % 28.3 (19.3-51.7) % Monocytes % 6.7 (4.7-12.5) % Eosinophils % 5.6 (0.7-5.8) % Basophils % 0.8 (0.1-1.2) % Absolute Granulocytes 6.20 H (1.56-6.13) x10^3/uL Basophils # 0.09 H (0.01-0.08) x10^3/uL pO2/FiO2 Ratio % VBG pH (7.32-7.42) VBG pCO2 at Pat Temp (42-55) mm/Hg VBG pO2 at Pat Temp (25-40) mm/Hg VBG HCO3 (22-28) meq/L VBG O2 Sat (Alexx) (95-100) VBG Base Excess (-2.0-2.0) VBG Hemoglobin VBG Carboxyhemoglobin (0.0-6.9) % T HGB POC Potassium (3.5-5.1) Sodium (135-145) mmol/L Potassium (3.5-5.1) mmol/L Chloride (98-107) mmol/L Carbon Dioxide (22-30) mmol/L Anion Gap (5-15) MEQ/L BUN (7-17) mg/dL Creatinine (0.52-1.04) mg/dL Estimated GFR ML/MIN Glucose (74-106) mg/dL POC Glucometer 393 H (74 to 106) mg/dL Calcium (8.4-10.2) mg/dL Total Bilirubin (0.2-1.3) mg/dL AST (14-36) U/L ALT (0-35) U/L Alkaline Phosphatase (38-126) U/L Serum Total Protein (6.3-8.2) g/dL Albumin (3.5-5.0) g/dL Urine Color Yellow (Yellow) Urine Appearance Clear (Clear) Urine pH 5.0 (4.6-8.0) Ur Specific [place] >=1.030 A (1.005-1.030) Urine Protein 30 (Negative) Urine Glucose (UA) >=1000 A (Negative) mg/dL Urine Ketones Negative (Negative) Urine Blood Moderate A (Negative) Urine Nitrite Negative (Negative) Urine Bilirubin Negative (Negative) Urine Urobilinogen 0.2 (0.2) mg/dL Ur Leukocyte Esterase Small A (Negative) U Hyaline Cast (Auto) NONE SEEN (0-2) /LPF Urine Microscopic RBC 3-5 (0-5) /HPF Urine Microscopic WBC 21-50 A (0-5) /HPF Ur Epithelial Cells Few (None Seen) /HPF Urine Bacteria Few A (None Seen) /HPF Urine Yeast (Budding) Moderate A (None Seen) /HPF Urine Culture Reflexed YES (NO) - Progress Progress: improved Progress Note: 10/18/24 14:37 UA suggestive of UTI and glucose pH wnl negative for ketones BG decreased to 319 with oral fluids electrolytes grossly normal plan to start bactrim for UTI, pt to follow up w/ Urology this week (Dr Posada) follow up with PCP (Puneet Reina) this week to discuss diabetes management instructed to continue metformin at current dose recommend limiting carbohydrate intake and drinking plenty of water to better control of blood sugar return to ED if: develop confusion, develop change in mental status, lose consciousness, fevers Counseled pt/family regarding: lab results, diagnosis, need for follow-up Medical Desision Making - Diagnostic Testing Diagnostic test were ordered, analyzed, and reviewed by me: Yes - Risk of complications Low Risk: Low risk of morbidity from additional dx testing or treatment - Departure Departure Disposition: Home Clinical Impression: Hyperglycemia UTI (urinary tract infection) Qualifiers: Urinary tract infection type: acute cystitis Hematuria presence: with hematuria Qualified Code(s): N30.01 - Acute cystitis with hematuria Condition: Stable Critical Care Time: No Referrals: MIGUEL BRAN [Primary Care Provider] - Follow up/PCP as directed Additional Instructions: plan to start bactrim for UTI, pt to follow up w/ Urology this week (Dr Posada) follow up with PCP (Puneet Reina) this week to discuss diabetes management instructed to continue metformin at current dose recommend limiting carbohydrate intake and drinking plenty of water to better control of blood sugar return to ED if: develop confusion, develop change in mental status, lose consciousness, fevers Prescriptions: Cefdinir 300 mg PO BID 7 Days #13 cap
[2024-10-18 13:31] LABS: VBG BASE EXCESS 0.2 (-2.0-2.0); VBG CARBOXYHEMOGLOBIN 5.2 % T HGB (0.0-6.9); VBG HCO3- 23.5 meq/L (22-28); VBG HEMOGLOBIN 13.1; VBG O2 SATURATION 96.6 (95-100); VBG POTASSIUM 5.4 (3.5-5.1); VBG pH 7.46 (7.32-7.42)
[2024-10-18 13:32] LABS: BASOPHIL % 0.8 % (0.1-1.2); Basophil (Absolute #) 0.09 x10^3/uL (0.01-0.08); Eosinophil % 5.6 % (0.7-5.8); Eosinophil (Absolute #) 0.59 x10^3/uL (0.04-0.36); Hematocrit 39.8 % (34.1-44.9); IMMATURE GRAN # 0.02 x10^3u/L (0.001-0.031); IMMATURE GRAN % 0.2 % (0.001-0.429); Lymphocyte (Absolute #) 3.01 x10^3/uL (1.18-3.74); Lymphocytes % 28.3 % (19.3-51.7); Mean Cell Volume 90.2 fL (79.4-94.8); Mean Corpuscular Hemoglobin 29.5 pg (25.6-32.2); Mean Corpuscular Hgb Concent. 32.7 g/dL (32.2-35.5); Mean Platelet Volume 11.9 fL (9.4-12.3); Monocyte (Absolute #) 0.71 x10^3/uL (0.24-0.86); Monocytes % 6.7 % (4.7-12.5); Neutrophil % 58.4 % (34.0-71.1); Platelet Count 207 x10^3/uL (182-369); Red Blood Count 4.41 x10^6/uL (3.93-5.22); Red Cell Distribution Width 12.8 % (11.7-14.4); White Blood Count 10.6 x10^3/uL (3.98-10.04)
[2024-10-18 13:59] LABS: ALBUMIN 4.6 g/dL (3.5-5.0); ANION GAP 17.4 MEQ/L (5-15); BILIRUBIN,TOTAL 0.6 mg/dL (0.2-1.3); Calcium 9.3 mg/dL (8.4-10.2); Creatinine 1 0.66 mg/dL (0.52-1.04); EST GLOMERULAR FILTRATION RATE 89.2 ML/MIN; Potassium 4.5 mmol/L (3.5-5.1); Total Protein 7.2 g/dL (6.3-8.2)
[2024-10-18 14:04] LABS: Appearance Clear (Clear); Bilirubin Negative (Negative); Blood Moderate (Negative); Glucose, Urine >=1000 mg/dL (Negative); Hyaline Casts NONE SEEN /LPF (0-2); Ketones Negative (Negative); Leukocyte Esterase Small (Negative); Nitrite Negative (Negative); Protein,Urine Dip 30 (Negative); Specific Gravity >=1.030 (1.005-1.030); Urobilinogen 0.2 mg/dL (0.2)
[2024-10-18 14:20] LABS: Bacteria Few /HPF (None Seen); Budding Yeast Moderate /HPF (None Seen); Epithelial Cells Few /HPF (None Seen); WBC 21-50 /HPF (0-5)
[2024-10-18 14:33] VITALS: PULSE 60; RESP 16
[2024-10-18 14:41] VITALS: O2SAT 96
[2024-10-18] MEDS: OMNICEF 300 MG PO ONE (14:59)
[2024-10-18 15:16] VITALS: BP 151/71
== END 2024-10-18 15:16 | disposition home or self-care (01) ==
LOC: ED 11:44
DX: E11.65 Type 2 diabetes mellitus with hyperglycemia (principal); N30.01 Acute cystitis with hematuria; R53.83 Other fatigue; E78.5 Hyperlipidemia, unspecified; I10 Essential (primary) hypertension; Z79.84 Long term (current) use of oral hypoglycemic drugs; Z79.899 Other long term (current) drug therapy
CPT/HCPCS: 36415; 80053; 81001; 82805; 82947; 85025; 87086; 99283; A9270-GY